=== PATIENT | male | born 1940 | race Caucasian/White ===

== ENCOUNTER 2018-08-06 21:09 | Emergency (ER) | payer MEDICARE ==
[2018-08-06 22:40] LABS: BASOPHIL % 0.7 % (0.0-0.4); Basophil (Absolute #) 0.06 (0-0.4); Eosinophil % 4.3 % (0.00-5.0); Eosinophil (Absolute #) 0.39 (0-0.5); Granulocyte Absolute (ANC) 4.32 (1.4-6.9); Granulocytes % 47.8 % (36.0-66.0); Hematocrit 40.7 % (42-50); Hemoglobin 13.6 gm/dl (12.5-18.0); Lymphocyte (Absolute #) 3.28 (1.0-4.6); Lymphocytes % 36.3 % (24.0-44.0); Mean Cell Volume 90.6 fl (78-100); Mean Corpuscular Hemoglobin 30.3 pg (26-32); Mean Corpuscular Hgb Concent. 33.4 g/dl (32-36); Monocyte (Absolute #) 0.98 (0.0-1.3); Monocytes % 10.9 % (0.0-12.0); Platelet Count 314 K/mm3 (150-450); Red Blood Count 4.49 M/mm3 (4.1-5.6); Red Cell Distribution Width 13.9 % (11.5-14.0)
[2018-08-06 22:53] LABS: CHLORIDE 99 mmol/L (98-107); Calcium 9.1 mg/dL (8.4-10.2); Carbon Dioxide 27 mmol/L (22-30); SODIUM 138 mmol/L (137-145)
[2018-08-06 23:00] LABS: ANION GAP 14.8 MEQ/L (5-15); BLOOD UREA NITROGEN 14 mg/dL (9-20); Creatinine 1 1.09 mg/dL (0.66-1.25); Glucose 143 mg/dL (74-106)
[2018-08-06 23:04] LABS: Appearance CLEAR (CLEAR); Bacteria RARE /HPF (NEGATIVE); Bilirubin NEGATIVE (NEGATIVE); Blood NEGATIVE Ery/ul (0-5); Epithelial Cells RARE /HPF (FEW); Glucose NEGATIVE (NEGATIVE); Ketones NEGATIVE (NEGATIVE); Leukocyte Esterase MODERATE (NEGATIVE); Mucus SLIGHT /HPF (NEGATIVE); Nitrite NEGATIVE (NEGATIVE); Protein,Urine Dip NEGATIVE (Negative); Specific Gravity 1.006 (1.005-1.025); Urobilinogen NEGATIVE mg/dL (0-1)
--- NOTE | 2018-08-06 23:33 | ERPHSYRPT ---
- History of Present Illness Source: patient, family Exam Limitations: no limitations Patient Subjective Stated Complaint: at supper time, his right hand started shaking so bad that he couldn't feed himself. Rt leg is weaker as well. Pt has fallen everyday x3 days. Triage Nursing Assessment: lungs clear, heart tones reg, abd soft with active bsx4 quad. no shaking noted at this time. 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 Pt able to press equally against my hands. Pt is weak with walking. Physician History: Pt is a 77 y/o male that presented to the ER secondary to tremor. Pt was at his baseline, but at dinner his r hand started shaking, to the point, he was not able to feed himself. Pt presented to the ED, secondary to it. Pt denies F /C/S. He has chronic UTI, and he is cathing himself twice daily, per Urology. Pt has no h/o CVA or TIA. No SOB or cough. Pt denies weakness that is one sided, but was feeling very weak, and had problem with ambulation. Timing/Duration: today Severity: mild Character of Deficits: other (tremor of R hand and weaknes in LEs.) Deficits: decrease ability to walk Baseline/Normal Cognition: alert oriented x 3 Current Cognition: alert oriented x 3 Baseline Gait: walks only w/assistance Associated Symptoms: fatigue, weakness, other (tremors) Allergies/Adverse Reactions: bacitracin [From Neosporin ([id number])] Adverse Reaction (Intermediate, Verified 08/06/18 22:01) Blisters neomycin [From Neosporin ([id number])] Adverse Reaction (Intermediate, Verified 08/06/18 22:01) Blisters polymyxin B [From Neosporin ([id number])] Adverse Reaction (Intermediate, Verified 08/06/18 22:01) Blisters Home Medications: Cyclobenzaprine HCl 10 mg [Cyclobenzaprine 10 MG] 10 mg PO TID 08/06/18 [ History] Finasteride 5 mg [Proscar 5 MG] 5 mg PO DAILY 08/06/18 [History] Gabapentin 300 mg PO TID 08/06/18 [History] Glipizide 5 mg [Glucotrol 5 MG] 5 mg PO BID 08/06/18 [History] Nifedipine Xl 30 mg [Adalat CC 30 MG TABLET] 30 mg PO DAILY 08/06/18 [ History] Sulfamethoxazole/Trimethoprim [Sulfamethoxazole-Tmp Ds Tablet] 800 mg PO BID 11/17 [History] Trazodone HCl 100 mg pe PO HS 08/06/18 [History] Hx Tetanus, Diphtheria Vaccination/Date Given: Yes Hx Influenza Vaccination/Date Given: No Hx Pneumococcal Vaccination/Date Given: No Immunizations Up to Date: Yes - Review of Systems Constitutional: Fatigue, No Fever, No Chills Eyes: No Symptoms Ears, Nose, & Throat: No Symptoms Respiratory: No Cough, No Dyspnea Cardiac: No Chest Pain, No Edema, No Syncope Abdominal/Gastrointestinal: No Abdominal Pain, No Nausea, No Vomiting, No Diarrhea Genitourinary Symptoms: Incontinence, Urinary Retention, Other (requires catheterizing himself.) Musculoskeletal: No Back Pain, No Neck Pain Skin: No Rash Neurological: Lethargy, Tremors - Past Medical History Pertinent Past Medical History: Yes Neurological History: Migraines ENT History: Cataracts Cardiac History: High Cholesterol, Hypertension, Myocardial Infarction (ME) Respiratory History: Pneumonia Endocrine Medical History: No Pertinent History Musculoskeletal History: Arthritis GI Medical History: GERD History: Renal Disease Psycho-Social History: No Pertinent History Male Reproductive Disorders: Prostate Problems - Past Surgical History Past Surgical History: Yes Neuro Surgical History: No Pertinent History Cardiac: Cardiac Catheterization Gastrointestinal: Appendectomy Genitourinary: No Pertinent History Musculoskeletal: No Pertinent History Male Surgical History: Vasectomy - Social History Smoking Status: Former smoker Exposure to second hand smoke: No Drug Use: marijuana Patient Lives Alone: No - Nursing Vital Signs Nursing Vital Signs: Initial Vital Signs Pulse Rate 88 08/06/18 21:09 Respiratory Rate 20 08/06/18 21:09 Blood Pressure 125/64 08/06/18 21:09 O2 Sat by Pulse Oximetry 89 L 08/06/18 21:09 Pain Scale Pain Intensity 0 - [place] Coma Scale Best Eye Response ([place]): (4) open spontaneously Best Verbal Response ([place]): (5) oriented Best Motor Response ([place]): (6) obeys commands [place] Total: 15 - Physical Exam General Appearance: no apparent distress, alert Eye Exam: bilateral eye: normal inspection, PERRL, EOMI Ears, Nose, Throat Exam: normal ENT inspection, moist mucous membranes Neck Exam: normal inspection, non-tender, supple Respiratory: normal breath sounds, lungs clear, airway intact, No respiratory distress Cardiovascular: regular rate/rhythm, No edema Gastrointestinal: soft, No tenderness, No distention Extremity Exam: normal inspection, No pedal edema 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 Dilatation of the ventricles with the prominence of the ventricle more pronounced than the sulci. Can be central atrophy vs NPH.) Ordered Tests: Active Orders 24 hr Category Date Time Status NPO (ED) STAT Care 08/06/18 21:51 Active HEAD WITHOUT CONTRAST [CT] Stat Exams 08/06/18 21:51 Taken BMP Stat Lab 08/06/18 22:30 Completed CBC W DIFF Stat Lab 08/06/18 22:30 Completed CULTURE,URINE Stat Lab 08/06/18 22:45 Received TROPONIN Q3H Lab 08/06/18 22:30 Completed TROPONIN Q3H Lab 08/07/18 01:00 Ordered TROPONIN Q3H Lab 08/07/18 04:00 Ordered TROPONIN Q3H Lab 08/07/18 07:00 Ordered TROPONIN Q3H Lab 08/07/18 10:00 Ordered UA W/RFX UR CULTURE Stat Lab 08/06/18 22:45 Completed Lab/Rad Data: Laboratory Result Diagrams 08/06/18 22:30 08/06/18 22:30 Laboratory Results 08/06/18 08/06/18 08/06/18 Range/Units 22:45 22:30 22:30 WBC (4.0-10.5) K/mm3 RBC (4.1-5.6) M/mm3 Hgb (12.5-18.0) gm/dl Hct (42-50) % MCV (78-100) fl MCH (26-32) pg MCHC (32-36) g/dl RDW (11.5-14.0) % Plt Count (150-450) K/mm3 MPV (6-9.5) fl Gran % (36.0-66.0) % Eos # (Auto) (0-0.5) Absolute Lymphs (auto) (1.0-4.6) Absolute Monos (auto) (0.0-1.3) Lymphocytes % (24.0-44.0) % Monocytes % (0.0-12.0) % Eosinophils % (0.00-5.0) % Basophils % (0.0-0.4) % Absolute Granulocytes (1.4-6.9) Basophils # (0-0.4) Sodium 138 (137-145) mmol/L Potassium 3.0 L (3.5-5.1) mmol/L Chloride 99 (98-107) mmol/L Carbon Dioxide 27 (22-30) mmol/L Anion Gap 14.8 (5-15) MEQ/L BUN 14 (9-20) mg/dL Creatinine 1.09 (0.66-1.25) mg/dL Estimated GFR > 60.0 ML/MIN Glucose 143 H (74-106) mg/dL Calcium 9.1 (8.4-10.2) mg/dL Troponin I 0.015 (0.000-0.034) ng/mL Urine Color YELLOW (YELLOW) Urine Appearance CLEAR (CLEAR) Urine pH 6.0 (5-6) Ur Specific [place] 1.006 (1.005-1.025) Urine Protein NEGATIVE (Negative) Urine Ketones NEGATIVE (NEGATIVE) Urine Blood NEGATIVE (0-5) [place] Urine Nitrite NEGATIVE (NEGATIVE) Urine Bilirubin NEGATIVE (NEGATIVE) Urine Urobilinogen NEGATIVE (0-1) mg/dL Ur Leukocyte Esterase MODERATE (NEGATIVE) Urine WBC (Auto) 6-10 (0-5) /HPF Urine RBC (Auto) NONE (0-2) /HPF U Epithel Cells (Auto) RARE (FEW) /HPF Urine Bacteria (Auto) RARE (NEGATIVE) /HPF Urine Mucus (Auto) SLIGHT (NEGATIVE) /HPF Urine Culture Reflexed YES (NO) Urine Glucose NEGATIVE (NEGATIVE) mg/dL 08/06/18 Range/Units 22:30 WBC 9.0 (4.0-10.5) K/mm3 RBC 4.49 (4.1-5.6) M/mm3 Hgb 13.6 (12.5-18.0) gm/dl Hct 40.7 L (42-50) % MCV 90.6 (78-100) fl MCH 30.3 (26-32) pg MCHC 33.4 (32-36) g/dl RDW 13.9 (11.5-14.0) % Plt Count 314 (150-450) K/mm3 MPV 9.0 (6-9.5) fl Gran % 47.8 (36.0-66.0) % Eos # (Auto) 0.39 (0-0.5) Absolute Lymphs (auto) 3.28 (1.0-4.6) Absolute Monos (auto) 0.98 (0.0-1.3) Lymphocytes % 36.3 (24.0-44.0) % Monocytes % 10.9 (0.0-12.0) % Eosinophils % 4.3 (0.00-5.0) % Basophils % 0.7 (0.0-0.4) % Absolute Granulocytes 4.32 (1.4-6.9) Basophils # 0.06 (0-0.4) Sodium (137-145) mmol/L Potassium (3.5-5.1) mmol/L Chloride (98-107) mmol/L Carbon Dioxide (22-30) mmol/L Anion Gap (5-15) MEQ/L BUN (9-20) mg/dL Creatinine (0.66-1.25) mg/dL Estimated GFR ML/MIN Glucose (74-106) mg/dL Calcium (8.4-10.2) mg/dL Troponin I (0.000-0.034) ng/mL Urine Color (YELLOW) Urine Appearance (CLEAR) Urine pH (5-6) Ur Specific [place] (1.005-1.025) Urine Protein (Negative) Urine Ketones (NEGATIVE) Urine Blood (0-5) [place] Urine Nitrite (NEGATIVE) Urine Bilirubin (NEGATIVE) Urine Urobilinogen (0-1) mg/dL Ur Leukocyte Esterase (NEGATIVE) Urine WBC (Auto) (0-5) /HPF Urine RBC (Auto) (0-2) /HPF U Epithel Cells (Auto) (FEW) /HPF Urine Bacteria (Auto) (NEGATIVE) /HPF Urine Mucus (Auto) (NEGATIVE) /HPF Urine Culture Reflexed (NO) Urine Glucose (NEGATIVE) mg/dL - Progress Progress: improved Progress Note: 08/06/18 23:36 Pt had lab work up that was non contributory. No leukocytosis. Mild chronic leukocyte esterase with minimal WBCs. Slight decrease in potassium level at 3.0. No CVA was seen on CT. On exam pt has minor tremor on the R, but strength is symmetric. Pt was advised to f/u with neurology for more testing, and work up. Will see patient in: office Counseled pt/family regarding: need for follow-up - Departure Departure Disposition: Home Clinical Impression: Tremor of right hand Condition: Stable Critical Care Time: No Referrals: SHAILA GONSALES NP [Primary Care Provider] - Additional Instructions: Pt should f/u with his PCP and get referral for neurology for more testing and work up. R/O NPH.
[2018-08-06 23:44] VITALS: BP 128/74
[2018-08-07 00:13] VITALS: PULSE 74; O2SAT 89
--- NOTE | 2018-08-07 08:39 | XRAY ---
Indication: Tremors and frequent falls. Multiple contiguous axial images obtained through the head without contrast. Comparison: None Age-appropriate global atrophy and mild periventricular degenerative micro-ischemia bilaterally. No acute intracranial hemorrhage, abnormal extra-axial fluid collection, or mass effect. There is prominence of the ventricular system probably related to atrophy. Fourth ventricle is midline. Bony calvarium intact. Visualized paranasal sinuses and mastoid air cells are clear. Impression: 1. Normal aging brain including atrophy and degenerative micro-ischemia. 2. Prominent ventricular system probably related to atrophy. Normal pressure hydrocephalus not completely excluded in the right clinical setting. 3. No acute intracranial abnormalities. Comment: Preliminary interpretation was made by [facility]. No discrepancy. CT DI 47.31
== END 2018-08-07 00:12 | disposition home or self-care (01) ==
LOC: ED 21:09
DX: R25.1 Tremor, unspecified (principal); I10 Essential (primary) hypertension; E78.00 Pure hypercholesterolemia, unspecified; I25.2 Old myocardial infarction; M19.90 Unspecified osteoarthritis, unspecified site; Z79.899 Other long term (current) drug therapy
CPT/HCPCS: 36415; 70450; 80048; 81001; 84484; 85025; 87086; 99283